=== PATIENT | male | born 1975 | race Caucasian/White ===

== ENCOUNTER 2024-09-21 17:56 | Emergency (ER) | payer SELFPAY ==
[2024-09-21 18:22] VITALS: BP 122/82; PULSE 82; RESP 16; TEMP 36.9; O2SAT 96; BMI 27.3
--- NOTE | 2024-09-21 19:14 | XRR_ITS ---
PROCEDURE INFORMATION: Exam: XR Chest Exam date and time: 09/21/2024 7:20 PM Age: 49 years old Clinical indication: Pain; Chest pressure; Additional info: Epigastric pain TECHNIQUE: Imaging protocol: Radiologic exam of the chest. Views: 1 view. COMPARISON: No relevant prior studies available. FINDINGS: Lungs: Unremarkable. No consolidation or mass. Pleural spaces: Unremarkable. No pleural effusion. No pneumothorax. Heart/Mediastinum: Unremarkable. No cardiomegaly. Bones/joints: Unremarkable. XR/XR chest 1V portable [id number] IMPRESSION: No acute findings.
--- NOTE | 2024-09-21 19:17 | ED_ITS ---
HPI - Abdominal Pain 2 General: Chief Complaint: Abdominal Pain Stated Complaint: mid stomach pain Time Seen by Provider: 09/21/24 18:59 History of Present Illness: Patient is a 49-year-old male with past medical history of GERD who presents the emergency department complaining of epigastric pain for the past few days. He reports he has had the same pain for many years prior, usually it is controlled with Tums and Prilosec [id number]. States that over the past few days, these medications have not worked and his pain has persisted. Notes that it does sometimes radiate into his left chest. He does not see a primary care provider, denies taking any prescribed medications or having any cardiac history. No concerning family history of cardiac disease. He does not report any specific alleviating or exacerbating factors. He is not short of breath, no fevers or chills, no nausea vomiting diarrhea, no palpitations or syncope, no other concerning symptoms reported at this time. He states the pain has been constant, it feels like an aching sensation. At this time he reports that it is mild. He denies ever having cardiac workup or having upper endoscopy performed. MD elicited complaint: abdominal pain Onset (ago): day(s) Pain Consistency: constant Location: Epigastric Severity: mild Quality: aching Radiation: chest Exacerbating factors: nothing Relieving factors: nothing Associated Symptoms: Denies chills, constipation, diarrhea, dysuria, fever(s), nausea and vomiting Treatments prior to arrival: antacids Related Data Allergies Allergy/AdvReac Type Severity Reaction Status Date / Time Penicillins Allergy ALGY-Anaphy Verified 09/21/24 18:21 laxis Review of Systems 2 General: Reports: 10 or more systems reviewed and unremarkable except in HPI and below Const: Denies: fever(s), chills or fatigue Eyes: Denies: change in vision ENMT: Denies: throat pain, ear or mastoid pain or nasal discharge Card: Reports: chest pain; Denies: palpitations, swelling of feet/ankles or lightheadedness Resp: Denies: dyspnea, productive cough or wheezing GI: Reports: abdominal pain; Denies: nausea, vomiting, diarrhea or constipation : Denies: flank pain, difficulty urinating, dysuria or urinary frequency Musc: Denies: neck pain, back pain or joint pain Skin/Breast: Denies: rash Neuro: Denies: headache(s), numbness in extremities or weakness in extremities Physical Exam 2 Const: COMMON NORMALS: no acute distress, average body habitus, patient oriented x3, no limitations, healthy appearing, alert and well nourished G ENERAL APPEARANCE: cooperative and comfortable ORIENTATION/CONSCIOUSNESS: Yes awake Eye: COMMON NORMALS: Equal, round and reactive pupils present, EOMs intact bilaterally, conjunctivae normal and normal visual taylor by confrontation C ONJUNCTIVA: Yes conjunctivae normal PUPIL: Yes Equal, round and reactive pupils present Neck/C-Spine: COMMON NORMALS: full ROM, supple, no meningeal signs and no JVD Resp: COMMON NORMALS: normal respiratory effort, No retractions, No use of accessory muscles and clear to auscultation bilaterally AUSCULTATION: clear to auscultation bilaterally, no crackles, no rales, no rhonchi and no wheezes Cardio: COMMON NORMALS: no JVD, regular rate, regular rhythm, S1 normal heart sound present, S2 normal heart sound present, No gallops present (Cardio), No clicks present (Cardio), No murmurs present (Cardio), No rub (Cardio) and Peripheral pulses 2+ throughout RATE: regular rate RHYTHM: regular rhythm HEART SOUNDS: S1 normal heart sound present and S2 normal heart sound present PERIPHERAL PULSES: Peripheral pulses 2+ throughout GI: COMMON NORMALS: Normal to inspection, nondistended, normoactive bowel sounds present, Soft to palpation, No hepatosplenomegaly present and no masses AUSCULTATION: Yes normoactive bowel sounds PALPATION: Yes Soft to palpation, Yes Tenderness to palpation present (GI) (Epigastric), No Guarding due to palpation present (GI), No Rigid due to palpation and Yes No hepatosplenomegaly present RECTAL EXAM: Yes deferred : COMMON NORMALS: Yes no CVA tenderness BLADDER/KIDNEY EXAM: Yes no CVA tenderness Back/Pelvis: COMMON NORMALS: no CVA tenderness Extremity: COMMON NORMALS: normal to inspection and full ROM Neuro: COMMON NORMALS: patient oriented x3, moves all extremities, no focal motor deficits and no sensory deficits noted SENSORIUM/ORIENTATION: Yes alert MENINGEAL SIGNS: Yes no meningeal signs Psych: COMMON NORMALS: mental status grossly normal, cooperative and speech normal SPEECH: Yes normal speech Skin: COMMON NORMALS: no rashes or lesions noted GENERAL SKIN EXAM: no rashes or lesions noted Course 2 Vital Signs: Vital signs: Vital Signs Temperature 98.4 F 09/21/24 18:22 Pulse Rate 82 09/21/24 20:14 Respiratory Rate 16 09/21/24 18:22 Blood Pressure 117/82 09/21/24 20:14 Pulse Oximetry 95 09/21/24 20:14 MDM - Abdominal Pain Medical Decision Making Patient presented with epigastric pain, wanted to rule out any cardiac etiology with this. He had a HEART score of 1, simply for his age. No pertinent medical history report, though he does not see primary care regularly. His baseline troponin negative, EKG reviewed with physician showing normal sinus rhythm with no acute ST segment changes. Chest x-ray unremarkable. All of his lab work unremarkable and he did note significant improvement after a GI cocktail. This makes me think that this is an exacerbation of his chronic GERD, of which she states he is taking Prilosec and Tums for in the past. However cannot fully rule out this is cardiac in nature and did strongly encourage him to establish with primary care for further outpatient cardiac workup. No need for acute cardiac consultation at this time, however did give strict return precautions to which patient agrees. Patient discharged home at this time. Lab Data 09/21/24 19:19 09/21/24 19:19 Labs/Radiology: Laboratory Results WBC 11.97 10^3/uL (3.29-11.43) H 09/21/24 19:19 RBC 5.13 10^6/uL (3.85-5.65) 09/21/24 19:19 Hgb 15.70 g/dL (11.27-16.99) 09/21/24 19:19 Hct 46.4 % (37-53) 09/21/24 19:19 MCV 90.4 fl (82-101) 09/21/24 19:19 MCH 30.6 pg (27-33) 09/21/24 19:19 MCHC 33.8 g/dL (30-55) 09/21/24 19:19 RDW 12.7 % (12.1-15.1) 09/21/24 19:19 Plt Count 223 10^3/cmm (157-399) 09/21/24 19:19 MPV 11.7 fL (7.4-10.4) H 09/21/24 19:19 Neut % (Auto) 65.5 % 09/21/24 19:19 Lymph % (Auto) 23.6 % 09/21/24 19:19 [place] % (Auto) 9.0 % 09/21/24 19:19 Eos % (Auto) 0.8 % 09/21/24 19:19 Baso % (Auto) 0.5 % 09/21/24 19:19 Neut # (Auto) 7.83 10^3/uL (1.8-7.7) H 09/21/24 19:19 Lymph # (Auto) 2.8 10^3/uL (0.8-4.8) 09/21/24 19:19 [place] # (Auto) 1.1 10^3/uL (0.2-0.9) H 09/21/24 19:19 Eos # (Auto) 0.1 10^3/uL (0.0-0.8) 09/21/24 19:19 Baso # (Auto) 0.1 10^3/uL (0.0-0.1) 09/21/24 19:19 Nucleated RBC % (auto) 0 % 09/21/24 19:19 Nucleated RBCs # 0.0 /100WBC 09/21/24 19:19 Sodium 146 mmol/L (136-145) H 09/21/24 19:19 Potassium 4.5 mmol/L (3.5-5.1) 09/21/24 19:19 Chloride 101 mmol/L (98-107) 09/21/24 19:19 Carbon Dioxide 27 mmol/L (22-29) 09/21/24 19:19 Anion Gap 22.5 (5-19) H 09/21/24 19:19 BUN 18 mg/dL (6-20) 09/21/24 19:19 Creatinine 0.7 mg/dL (0.7-1.2) 09/21/24 19:19 GFR Calculation 119.9 mL/min (90-130) 09/21/24 19:19 Glucose 94 mg/dL (65-115) 09/21/24 19:19 Calculated Osmolality 304 mOsm/kg (285-295) H 09/21/24 19:19 Calcium 10.2 mg/dL (8.5-10.5) 09/21/24 19:19 Total Bilirubin 0.4 mg/dL (0.15-1.2) 09/21/24 19:19 AST 27 U/L (0-40) 09/21/24 19:19 ALT 33 U/L (0-41) 09/21/24 19:19 Alkaline Phosphatase 84 U/L (40-130) 09/21/24 19:19 Troponin T Baseline < 6 ng/L (0-15) 09/21/24 19:19 Total Protein 7.5 g/dL (6.6-8.7) 09/21/24 19:19 Albumin 4.5 g/dL (3.5-5.2) 09/21/24 19:19 Globulin 3.0 g/dL (1.3-4.6) 09/21/24 19:19 Lipase 20 U/L (13-60) 09/21/24 19:19 XR interpretation done by ED provider, pending radiology final review ED provider radiology interpretation(s): Chest x-ray not showing any acute cardiopulmonary process. EKG Data EKG 1: I personally reviewed and interpreted this EKG as follows: EKG interpretation date: 09/21/24 EKG interpretation time: 18:27 Interpretation: 1827: Normal sinus rhythm. Rate 86. Normal axis. Normal intervals. No ST segment changes. Discharge Plan Discharge Patient Disposition: Home Clinical Impression: GERD (gastroesophageal reflux disease) Qualifiers: Esophagitis presence: esophagitis presence not specified Qualified Code(s): K 21.9 - Gastro-esophageal reflux disease without esophagitis Condition: Stable Discharge Orders: Discharge ED (Routine); Ordered 09/21/24 Ordered By: Kofi Major Patient Instructions: Chest Pain (ED), GERD (Gastroesophageal Reflux Disease) (ED) Activity Restrictions/Additional Instructions: See attached patient instructions for further education. Recommend establishing with primary care for close follow-up, and recommend outpatient cardiac testing such as stress test or echocardiogram. Make sure to drink plenty of fluids and avoid any potential food or drink that may worsen your stomach pain. May take [id number] omeprazole. Please return with any worsening of your pain or other concerning symptoms you may have. Coding Level of Care Code ED Material Combiner for Morris Cruz
[2024-09-21] MEDS: lidocaine 2% viscous 15 ML, aluminum-mag hydrox-simethicon 30 ML, sucralfate oral liq 1 GM PO (19:20)
[2024-09-21 19:22] VITALS: BP 125/88; PULSE 87; O2SAT 97
[2024-09-21 19:43] LABS: Basophils # 0.1 10^3/uL (0.0-0.1); Basophils % 0.5 %; Eosinophils # 0.1 10^3/uL (0.0-0.8); Eosinophils % 0.8 %; Hematocrit 46.4 % (37-53); Lymphocytes # 2.8 10^3/uL (0.8-4.8); Lymphocytes % 23.6 %; Mean Corpuscular HGB Conc 33.8 g/dL (30-55); Mean Corpuscular Hemoglobin 30.6 pg (27-33); Mean Corpuscular Volume 90.4 fl (82-101); Mean Platelet Volume 11.7 fL (7.4-10.4); Monocytes # 1.1 10^3/uL (0.2-0.9); Neutrophils # 7.83 10^3/uL (1.8-7.7); Neutrophils % 65.5 %; Nucleated Red Blood Cells % 0 %; Platelet Count 223 10^3/cmm (157-399); Red Blood Count 5.13 10^6/uL (3.85-5.65); Red Cell Distribution Width 12.7 % (12.1-15.1); White Blood Count 11.97 10^3/uL (3.29-11.43)
[2024-09-21 20:05] LABS: Troponin(5th) Baseline < 6 ng/L (0-15)
[2024-09-21 20:08] LABS: Alanine Aminotransferase 33 U/L (0-41); Albumin Level 4.5 g/dL (3.5-5.2); Alkaline Phosphatase 84 U/L (40-130); Anion Gap 22.5 (5-19); Aspartate Amino Transferase 27 U/L (0-40); Blood Urea Nitrogen 18 mg/dL (6-20); Calcium 10.2 mg/dL (8.5-10.5); Carbon Dioxide 27 mmol/L (22-29); Chloride 101 mmol/L (98-107); Creatinine Clr Calc Pharmacy 128.9376; Glomerular Filtration Rate 119.9 mL/min (90-130); Glucose 94 mg/dL (65-115); Lipase 20 U/L (13-60); Osmolality Calculated 304 mOsm/kg (285-295); Potassium 4.5 mmol/L (3.5-5.1); Sodium 146 mmol/L (136-145); Total Bilirubin 0.4 mg/dL (0.15-1.2); Total Protein 7.5 g/dL (6.6-8.7)
[2024-09-21 20:14] VITALS: BP 117/82; PULSE 82; O2SAT 95
--- NOTE | 2024-09-21 21:14 | ECG_ITS ---
[facility] Test Date: 2024-09-21 Pat Name: Mike Mosqueda Department: Room: Gender: Male Digital Sales Executive: : 1975 Requested By: Kofi Stephenson Order Number: [id number] Donna MD: Jeanie Garcia M.D. Measurements Intervals [place] Rate: 86 P: 37 DC: 152 QRS: 32 QRSD: 88 T: 52 QT: 334 QTc: 400 Interpretive Statements SINUS RHYTHM No previous ECG available for comparison Electronically Signed On 09-22-2024 21:43:45 [employer] ACCOUNTANT by Jeanie Garcia M.D. [email or web address]
[2024-09-21 21:24] VITALS: BP 120/83; PULSE 76; O2SAT 94
== END 2024-09-21 21:25 | disposition home or self-care (01) ==
PROVIDERS: Emergency Medicine; Emergency Provider Physician Assistant
DX: K21.9 Gastro-esophageal reflux disease without esophagitis (principal)
CPT/HCPCS: 36415; 71045; 80053; 83690; 84484; 85025; 93005; 99285